=== PATIENT | female | born 1960 | race Caucasian/White ===

== ENCOUNTER 2020-04-14 18:32 | Emergency (ER) | payer MEDICAID ==
[~2020-04-14] VITALS: Ht 154.9 cm; Wt 59.1 kg
[2020-04-14 18:35] VITALS: BP 164/66
[2020-04-14] MEDS ORDERED: FAMO40TA73 PO (19:16)
[2020-04-14] MEDS ORDERED: PRED10TA23 PO (19:16)
[2020-04-14] MEDS ORDERED: DIPH25CA83 PO (19:16)
--- NOTE | 2020-04-14 19:23 | NUR ---
pt reports poison oak to left face and neck. she got it last night and is seeking treatment for the rash and itching.
== END 2020-04-14 19:35 | disposition home or self-care (01) ==
LOC: ER 18:33
DX: L23.7 Allergic contact dermatitis due to plants, except food (principal); Z88.1 Allergy status to other antibiotic agents; Z88.8 Allergy status to other drugs, medicaments and biological substances; Z79.899 Other long term (current) drug therapy
CPT/HCPCS: 99283

== ENCOUNTER 2022-07-16 11:43 | Emergency (ER) | payer MEDICAID ==
[~2022-07-16] VITALS: Ht 154.9 cm; Wt 59.0 kg
[~2022-07-16 11:43] MED LIST: DIPH25CA83 PO; FAMO40TA73 PO
[2022-07-16 11:58] VITALS: BP 140/82
[2022-07-16] MEDS ORDERED: diphenhydrAMINE 25mg capsule PO ONE (13:25)
[2022-07-16] MEDS ORDERED: triamcinolone acetonide 40mg/ml inj IM ONE (13:25)
[2022-07-16] MEDS ORDERED: DIPH25CA83 PO (13:27)
[2022-07-16] MEDS ORDERED: METH4TAB3 PO (13:27)
[2022-07-16] MEDS ORDERED: HYDR28CR14 TOP (13:27)
== END 2022-07-16 13:54 | disposition home or self-care (01) ==
LOC: ER 11:44
DX: L23.7 Allergic contact dermatitis due to plants, except food (principal); Z88.2 Allergy status to sulfonamides; Z88.8 Allergy status to other drugs, medicaments and biological substances
CPT/HCPCS: 96372; 99283; J3301; Q0163